=== PATIENT | female | born 1985 | race Caucasian/White ===

== ENCOUNTER 2016-04-29 11:34 | Emergency (ER) | payer OTHER ==
[2016-04-29 11:46] VITALS: TEMP 98.3; BMI 20.5
[2016-04-29] MEDS ORDERED: MORPHINE 4 MG/ML INJECTION IV ONE ×3 (12:09→17:38)
[2016-04-29] MEDS ORDERED: ONDANSETRON HCL 4 MG/2 ML VIAL IV ONE (12:09)
[2016-04-29] MEDS ORDERED: NS 1,000 ML IV ONE (12:09)
--- NOTE | 2016-04-29 12:41 | EDPRACDOC ---
- General Information Chief Complaint: Abdominal Pain Stated Complaint: ABD PAIN SENT FROM DOCTOR'S OFFICE Time Seen by Provider: 04/29/16 12:06 Mode Of Arrival: Car Home Medications: Home Medications Oxycodone Immediate Release [Oxycodone Immediate Release (OxyIR)] 5 - 15 mg PO Q4H PRN #30 tab 04/29/16 Rivaroxaban [Xarelto] 20 mg PO DAILY #30 tablet 04/29/16 TOPIRAMATE (Anticonvulsant) [Topamax] 100 mg PO DAILY 04/29/16 Venlafaxine HCl [Effexor] 18.75 mg PO DAILY 04/29/16 s-Wqrowwi-Equ Estr/Ethin Estra [Levonorg-Eth Estrad Eth Estrad] 1 each PO DAILY 04/29/16 Allergies/Adverse Reactions: Allergies Allergy/AdvReac Type Severity Reaction Status Date / Time No Known Allergies Allergy Verified 04/29/16 11:46 - History of Present Illness Onset: YEST HPI: RIGHT LOWER QUADRANT ABDOMINAL PAIN. MIGRAINE TO RIGHT FLANK. NO ALLEVIATING OR AGGRAVATING FACTORS. INTENSE IN NATURE WHILE EXITING AND WANING. SOME ASSOCIATED NAUSEA WITHOUT VOMITING. NO DIARRHEA. NO FEVER. NEVER HAD THIS BEFORE. 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 URINE TEST NEGATIVE, PELVIC EXAM WAS NEGATIVE PATIENT WAS REFERRED TO EMERGED FROM. Last Menstrual Period: 01/27 ED Past Medical History - History Reviewed Yes Nurses notes reviewed and agree except as marked - Patient Medical History Musculoskeletal History: Denies: Arthritis Psychological History: Reports: Anxiety Systemic History: Denies: Cancer Surgical History: Denies: Hysterectomy EDM Review of Systems - Review of Systems ROS Negative Except as Marked: Yes All systems reviewed and were negative except as marked Cardiovascular: Palpitations (IN THE PAST) - Physical Exam Constitutional: Alert, Distress (MILD), Restless Oriented to: Time, Person, Place Last recorded Vital Signs: Last Vital Signs Temp 98.3 F 04/29/16 11:43 Pulse 64 04/29/16 14:46 Resp 18 04/29/16 14:46 BP 154/90 04/29/16 14:46 Pulse Ox 96 04/29/16 14:46 Oxygen Pulse Oxygen Saturation 96 O2 Device Oxygen Flow Rate Fraction of Inspired Oxygen ( FIO2) - HEENT Head: Normal Eye Exam: negative: Pale Conjunctiva Oropharynx: Normal. negative: Membranes Dry Neck: Normal. negative: Limited ROM, Lymphadenopathy, Meningeal Signs - Respiratory/Cardiovascular Respiratory: Normal - CTA Cardiovascular: Normal - GI Auscultation: Normal Palpation: Normal Tenderness: Mild, RLQ. negative: Guarding, Rebound, Rigidity - Adnexa: Bilateral: Normal (NONTENDER TO PALPATION) - Musculoskeletal Back: Normal Extremities: Normal - Integumentary Skin: Normal, Warm, Dry - Neurologic Memory Impaired: Normal Mood Description: Normal - Results 04/29/16 12:36 04/29/16 12:36 WBC 8.6 xk/uL (3.8-10.8) 04/29/16 12:36 RBC 4.92 xM/uL (4.20-5.40) 04/29/16 12:36 Hgb 14.4 g/dL (12.0-16.0) 04/29/16 12:36 Hct 43.4 % (36-47) 04/29/16 12:36 MCV 88 fL (81-99) 04/29/16 12:36 MCH 29.2 pg (27-32) 04/29/16 12:36 MCHC 33.2 g/dl (33-36) 04/29/16 12:36 RDW 13.6 % (11.5-14.5) 04/29/16 12:36 Plt Count 172 xk/uL (130-400) 04/29/16 12:36 MPV 9.3 fL (7.4-10.4) 04/29/16 12:36 Neut % (Auto) 82.0 % (45-76) H 04/29/16 12:36 Lymph % (Auto) 12.0 % (17-44) L 04/29/16 12:36 [place] % (Auto) 4.5 % (3-10) 04/29/16 12:36 Eos % (Auto) 1.0 % (0-5) 04/29/16 12:36 Baso % (Auto) 0.5 % (0-2) 04/29/16 12:36 Absolute Neuts (auto) 7.05 xk/uL (1.7-8.2) 04/29/16 12:36 Absolute Lymphs (auto) 1.03 xk/uL (0.65-4.75) 04/29/16 12:36 Sodium 139 mEq/L (137-146) 04/29/16 12:36 Potassium 4.0 mEq/L (3.5-5.1) 04/29/16 12:36 Chloride 107 mEq/L (98-107) 04/29/16 12:36 Carbon Dioxide 22 mMOL/L (22-33) 04/29/16 12:36 Anion Gap 14 mEq/L (8-16) 04/29/16 12:36 BUN 11 MG/DL (7-17) 04/29/16 12:36 Creatinine 0.80 MG/DL (0.52-1.04) 04/29/16 12:36 Estimated GFR (MDRD) > 60 mL/min (>=60) 04/29/16 12:36 Glucose 89 MG/DL (70-99) 04/29/16 12:36 Calculated Osmolality 266 MOs/Kg (270-290) L 04/29/16 12:36 Calcium 9.1 MG/DL (8.4-10.2) 04/29/16 12:36 Total Bilirubin 0.5 MG/DL (0.2-1.3) 04/29/16 12:36 AST 29 IU/L (14-36) 04/29/16 12:36 ALT 23 IU/L (9-52) 04/29/16 12:36 Alkaline Phosphatase 64 IU/L (38-126) 04/29/16 12:36 Total Protein 7.4 G/DL (6.3-8.2) 04/29/16 12:36 Albumin 4.3 G/DL (3.5-5.0) 04/29/16 12:36 Urine Color Yellow 04/29/16 12:00 Urine Clarity Sl hzy 04/29/16 12:00 Urine pH 7.0 (5.0-8.0) 04/29/16 12:00 Ur Specific [place] 1.010 (1.003-1.035) 04/29/16 12:00 Urine Protein Trace (NEG/TRACE) 04/29/16 12:00 Urine Glucose (UA) Neg (NEGATIVE) 04/29/16 12:00 Urine Ketones Neg (NEGATIVE) 04/29/16 12:00 Urine Occult Blood Neg (NEG/TRACE) 04/29/16 12:00 Urine Nitrite Neg (NEGATIVE) 04/29/16 12:00 Urine Bilirubin Neg (NEGATIVE) 04/29/16 12:00 Urine Urobilinogen 0.2 MG/DL (0-1) 04/29/16 12:00 Ur Leukocyte Esterase Neg (NEGATIVE) 04/29/16 12:00 Urine RBC 0-2 (0-5) 04/29/16 12:00 Urine WBC 10-20 (0-5) H 04/29/16 12:00 Ur Epithelial Cells 2+ 04/29/16 12:00 Amorphous Sediment 1+ 04/29/16 12:00 Urine Bacteria Few (NEG/FEW) 04/29/16 12:00 Urine Mucus Sm amt (NEG/OCC) 04/29/16 12:00 Lab Results 04/29/16 04/29/16 04/29/16 12:36 12:36 12:00 WBC 8.6 RBC 4.92 Hgb 14.4 Hct 43.4 MCV 88 MCH 29.2 MCHC 33.2 RDW 13.6 Plt Count 172 MPV 9.3 Neut % (Auto) 82.0 H Lymph % (Auto) 12.0 L [place] % (Auto) 4.5 Eos % (Auto) 1.0 Baso % (Auto) 0.5 Absolute Neuts (auto) 7.05 Absolute Lymphs (auto) 1.03 Sodium 139 Potassium 4.0 Chloride 107 Carbon Dioxide 22 Anion Gap 14 BUN 11 Creatinine 0.80 Estimated GFR (MDRD) > 60 Glucose 89 Calculated Osmolality 266 L Calcium 9.1 Total Bilirubin 0.5 AST 29 ALT 23 Alkaline Phosphatase 64 Total Protein 7.4 Albumin 4.3 Urine Color Yellow Urine Clarity Sl hzy Urine pH 7.0 Ur Specific [place] 1.010 Urine Protein Trace Urine Glucose (UA) Neg Urine Ketones Neg Urine Occult Blood Neg Urine Nitrite Neg Urine Bilirubin Neg Urine Urobilinogen 0.2 Ur Leukocyte Esterase Neg Urine RBC 0-2 Urine WBC 10-20 H Ur Epithelial Cells 2+ Amorphous Sediment 1+ Urine Bacteria Few Urine Mucus Sm amt - EKG EKG #1 EKG Time: 16:09 -: Yes EKG interpreted by me Rate: bpm: 61 [place]: Normal Rhythm: NSR Block: None Hypertrophy: None ST: Normal - Additional Information I DISCUSSED WITH PCP DR. MONICA GARCIA: SHE WILL FOLLOW UP ON HYPERCOAGULABLE PANEL AND WELL FOLLOWED IN THE CLINIC. WE AGREE THAT THIS IS MOST LIKELY THROMBOEMBOLIC AND SINCE THIS IS A THROMBOEMBOLIC EVENT XARELTO TREATMENT SHOULD BE REASONABLE. - Departure Condition: Stable Final Diagnosis: RIGHT RENAL INFARCT Instructions: Acute Abdominal Pain (ED) Education/Counseling Given To: Patient Education/Counseling Given Regarding: Diagnosis, Treatment Referrals: Monica Garcia DO [Primary Care Provider] - One Week Prescriptions: Oxycodone Immediate Release [Oxycodone Immediate Release (OxyIR)] 5 - 15 mg PO Q4H PRN #30 tab PRN Reason: Pain Rivaroxaban [Xarelto] 20 mg PO DAILY #30 tablet Additional Instructions: STOP CONTROL PILLS. DO NOT BE AROUND CIGARETTE SMOKE. - Physician Consulted Urology Time Called: 15:30 Provider Called: Gume Snider Time Machinist [employer] Returned Call: 15:30 (NO TREATMENT FOR KIDNEY, LOOK FOR SOURCE OR CAUSE) Primary Care Provider Time Called: 15:59 Provider Called: Monica Garcia Time Machinist [employer] Returned Call: 15:59 (WILL SEE IN F/U)
[2016-04-29 12:47] LABS: AUTOMATED BASOPHIL 0.5 % (0-2); AUTOMATED MONOCYTE 4.5 % (3-10); MPV 9.3 fL (7.4-10.4)
[2016-04-29 12:58] LABS: AMORPHOUS 1+; RBC/URINE 0-2 (0-5)
[2016-04-29 12:59] LABS: LEUKOCYTES/URINE NEG (NEGATIVE); NITRITE/URINE NEG (NEGATIVE); URINE OCCULT BLOOD NEG (NEG/TRACE)
[2016-04-29 13:03] LABS: BLOOD UREA NITROGEN 11 MG/DL (7-17); CALCIUM 9.1 MG/DL (8.4-10.2); CALCULATED OSMOLALITY 266 MOs/Kg (270-290); CHLORIDE 107 mEq/L (98-107); GLUCOSE 89 MG/DL (70-99); SODIUM LEVEL 139 mEq/L (137-146); TOTAL PROTEIN 7.4 G/DL (6.3-8.2)
[2016-04-29] MEDS ORDERED: Pharmacy Review for Metformin - IV Contrast Given SCH (14:00)
--- NOTE | 2016-04-29 15:25 | DIRPT ---
CLINICAL DATA: Right lower quadrant and right flank pain since 9 p.m. last night. Initial encounter. EXAM: CT ABDOMEN AND PELVIS WITH CONTRAST TECHNIQUE: Multidetector CT imaging of the abdomen and pelvis was performed using the standard protocol following bolus administration of intravenous contrast. CONTRAST: 100 cc Isovue 370. COMPARISON: None. FINDINGS: The lung bases are clear. No pleural or pericardial effusion. The gallbladder, liver, spleen, adrenal glands, pancreas and left kidney appear normal. There is abnormal wedge-shaped hypoattenuation in the cortex of the lower pole of the right kidney with some associated volume loss. Uterus, adnexa and urinary bladder are unremarkable. The stomach and small and large bowel appear normal. There is no evidence of appendicitis. Trace amount of free pelvic fluid is consistent with physiologic change. No lymphadenopathy. There is no focal bony abnormality. New IMPRESSION: Negative for appendicitis. Low attenuating lower pole right kidney has an appearance most compatible with subacute or remote infarct. Cause for this finding is not identified. Question atrial septal defect or possible prior episode of vasculitis. Electronically Signed By: Edgar Reynolds M.D. On: 04/29/2016 15:22
--- NOTE | 2016-04-29 17:10 | CAPUECHO ---
INDICATION: EMBOLIC EVENT HEIGHT: 167.6 cm (5 ft 6.0 in) WEIGHT: 57.6 kg (127.0 lbs) BP: 154/90 BSA: 1.703911 m MEASUREMENTS 2D RVIDd: 1.9 cm LVOT Diam: 1.9 cm LA Diam: 1.8 cm EF Biplane: 63.11 % LAESV MOD A4C: 34.2 ml LAESV MOD A2C: 11.9 ml LAESV Index (A-L): 13.55 ml/m M-MODE IVSd: 1.0 cm LVIDd: 4.1 cm LVPWd: 0.7 cm LVIDs: 2.7 cm EF(Teich): 63 % Ao Diam: 2.6 cm LA Diam: 1.6 cm DOPPLER MV E Juan Luis: 0.94 m/s MV A Juan Luis: 0.60 m/s MV PHT: 74.52 ms MVA By PHT: 2.95 cm LVOT Vmax: 0.83 m/s AV Vmax: 1.06 m/s MARGOT Vmax, Pt: 2.27 cm TR Vmax: 2.17 m/s TR maxP mmHg RVSP: 35.01 mmHg FINDINGS ------- Procedure:2D images, m-mode, color and spectral Doppler were obtained and reviewed. ECG rhythm:Sinus rhythm. Study quality:This was a technically adequate study. Left Ventricle:The left ventricular size is normal. Left ventricular wall thickness is normal. T here is normal global left ventricular contractility. Overall left ventricular systolic function i s normal with, an EF between 60 - 65 %. The diastolic filling pattern is normal for the age of the patient. No regional wall motion abnormalities were noted. Right Ventricle:The right ventricle is normal in size and function. Left Atrium:The left atrium is normal in size. Right Atrium:The right atrium is normal in size and function. ASD/VSD:Interatrial and interventricular septum intact. Aortic Valve:The aortic valve is trileaflet, and appears structurally normal. No aortic stenosis or regurgitation. Mitral Valve:Normal appearing mitral valve. There is trace mitral regurgitation. Tricuspid Valve:The tricuspid valve appears structurally normal. Mild tricuspid regurgitation pres ent. There is no evidence of pulmonary hypertension. The right ventricular systolic pressure, as measured by Doppler, is 35mmHg. Pulmonic Valve:The pulmonic valve is normal. There is no pulmonic regurgitation present. Aorta:The aortic root, ascending aorta and aortic arch appear normal. IVC:Normal inferior vena cava with normal inspiratory collapse. Pericardium:The pericardium is normal. There is no pericardial effusion. CONCLUSIONS 1. There is normal global left ventricular contractility. 2. Overall left ventricular systolic function is normal with, an EF between 60 - 65 %. 3. The right ventricle is normal in size and function. 4. Interatrial and interventricular septum intact. Electronically Signed By: Sukhwinder Lamar MD, [facility] Electronically Signed On: 17:05:15
[2016-04-29 18:11] VITALS: BP 124/92; PULSE 75
[2016-05-02 14:40] LABS: DILUTE RUSSELL'S VIPER VENOM 34.8 sec (0.0-44.0); PROTEIN C/FACTOR XIV 99 % (60-150)
[2016-05-02 16:22] LABS: INTERPRETATION Comment: (.); PROTEIN S(FUNCTIONAL) 78 % (63-140)
== END 2016-04-29 18:10 | disposition home or self-care (01) ==
LOC: ED 11:34
DX: N28.0 Ischemia and infarction of kidney (principal); F41.9 Anxiety disorder, unspecified; Z79.899 Other long term (current) drug therapy
CPT/HCPCS: 36415; 74177; 80053; 81001; 81240; 81241; 85025; 85300; 85302; 85303; 85305; 85306; 85384; 85613; 85732; 86147; 93005; 93306; 96374; 96375; 96376; 99285; A9698; J2270; J2405